=== PATIENT | male | born 1935 | race Caucasian/White ===

== ENCOUNTER 2018-07-27 14:23 | Inpatient (IN) | payer MEDICARE, OTHER ==
[2018-07-27 14:59] LABS: ADD MAN DIFF? NO
[2018-07-27 15:05] LABS: BASOPHILS % 0.7 % (0.0-2.0); EOSINOPHILS # 0.2 10^3/ul (0.0-0.5); EOSINOPHILS % 3.1 % (0.0-7.0); HEMATOCRIT 36.4 % (42.0-52.0); HEMOGLOBIN 11.8 g/dl (14.0-18.0); LYMPHOCYTES # 1.1 10^3/ul (0.8-2.9); LYMPHOCYTES % 18.9 % (15.0-51.0); MEAN CORPUSCULAR HEMOGLOBIN 30.2 pg (29.0-33.0); MEAN CORPUSCULAR HGB CONC 32.4 g/dl (32.0-37.0); MEAN CORPUSCULAR VOLUME 93.1 fl (82.0-101.0); MEAN PLATELET VOLUME 9.4 fl (7.4-10.4); MONOCYTE # 0.6 10^3/ul (0.3-0.9); MONOCYTES % 10.3 % (0.0-11.0); NEUTROPHIL # 3.8 10^3/ul (1.6-7.5); NEUTROPHILS % 66.8 % (39.0-77.0); PLATELET COUNT 205 10^3/UL (140-415); RED BLOOD COUNT 3.91 10^6/ul (4.70-6.10); RED CELL DISTRIBUTION WIDTH 12.6 % (11.5-14.5)
[2018-07-27 15:05] LABS: WHITE BLOOD COUNT 5.7 10^3/ul (4.8-10.8)
[2018-07-27] MEDS: SOD CHLORIDE 0.9% 1,000 ML IV ×2 (15:15→20:28)
[2018-07-27 15:23] LABS: ANION GAP 12 (5-13); BLOOD UREA NITROGEN 28 mg/dl (7-20); CALCIUM 9.1 mg/dl (8.4-10.2); CARBON DIOXIDE 19 mmol/L (21-31); CHLORIDE 110 mmol/L (97-110); GLUCOSE 113 mg/dl (70-220); POTASSIUM 4.2 mmol/L (3.5-5.1); SODIUM 141 mmol/L (135-144)
[2018-07-27 15:34] LABS: TROPONIN-I < 0.012 ng/ml (0.000-0.120)
[2018-07-27] MEDS ORDERED: ONDANSETRON 4 MG INJ IV ×2 (18:00→18:30)
[2018-07-27] MEDS ORDERED: ACETAMINOPHEN 325 MG TAB PO ×2 (18:00→18:30)
[2018-07-27] MEDS ORDERED: NACL 0.9% 3 ML SYG IV (18:30)
[2018-07-27] MEDS ORDERED: BISACODYL (EC) 5 MG TAB PO (18:30)
[2018-07-27] MEDS ORDERED: HYDROCODONE/APAP (5/325) TAB PO (18:30)
[2018-07-27] MEDS ORDERED: hydrALAzine 20 MG INJ IV (18:30)
[2018-07-27] MEDS ORDERED: GLUCOSE GEL 15 GRAM TUBE BUCCAL (19:00)
[2018-07-27] MEDS ORDERED: GLUCAGON 1 MG INJ IM (19:00)
[2018-07-27] MEDS ORDERED: DEXTROSE 50% 50 ML SYRINGE IV ×2 (19:00)
[2018-07-27] MEDS ORDERED: GLUCOSE GEL 15 GRAM TUBE PO ×2 (19:00)
[2018-07-27] MEDS: CEFTRIAXONE 1 GM/50 ML (PMX) 50 ML IVPB (19:54)
[2018-07-27] MEDS: INSULIN GLARGINE [LANTus] (100 UNITS/ML) SYG SC (20:00)
[2018-07-27] MEDS: INSULIN ASPART [NOVOLOG] 3 ML PEN SC (20:30)
[2018-07-27] MEDS: ATORVASTATIN 40 MG TAB PO (20:35)
[2018-07-28] MEDS: ACCU-CHEK XX (01:59)
[2018-07-28 05:57] LABS: ADD MAN DIFF? NO
[2018-07-28 06:06] LABS: BASOPHILS % 0.7 % (0.0-2.0); EOSINOPHILS # 0.2 10^3/ul (0.0-0.5); EOSINOPHILS % 2.7 % (0.0-7.0); HEMATOCRIT 34.7 % (42.0-52.0); HEMOGLOBIN 11.3 g/dl (14.0-18.0); LYMPHOCYTES # 1.3 10^3/ul (0.8-2.9); LYMPHOCYTES % 22.1 % (15.0-51.0); MEAN CORPUSCULAR HEMOGLOBIN 30.1 pg (29.0-33.0); MEAN CORPUSCULAR HGB CONC 32.6 g/dl (32.0-37.0); MEAN CORPUSCULAR VOLUME 92.5 fl (82.0-101.0); MEAN PLATELET VOLUME 10.2 fl (7.4-10.4); MONOCYTE # 0.8 10^3/ul (0.3-0.9); MONOCYTES % 12.8 % (0.0-11.0); NEUTROPHIL # 3.7 10^3/ul (1.6-7.5); NEUTROPHILS % 61.5 % (39.0-77.0); PLATELET COUNT 206 10^3/UL (140-415); RED BLOOD COUNT 3.75 10^6/ul (4.70-6.10); RED CELL DISTRIBUTION WIDTH 12.6 % (11.5-14.5)
[2018-07-28 06:11] LABS: HEMOGLOBIN A1C 6.4 % (0-5.9)
[2018-07-28 06:29] LABS: ALANINE AMINOTRANSFERASE 30 IU/L (13-69); ALBUMIN 3.6 g/dl (3.3-4.9); ALBUMIN/GLOBULIN RATIO 1.44; ALKALINE PHOSPHATASE 97 IU/L (42-121); ANION GAP 13 (5-13); ASPARTATE AMINO TRANSFERASE 25 IU/L (15-46); BILIRUBIN,INDIRECT 0.2 mg/dl (0-1.1); BILIRUBIN,TOTAL 0.2 mg/dl (0.2-1.3); BLOOD UREA NITROGEN 26 mg/dl (7-20); CARBON DIOXIDE 21 mmol/L (21-31); CHLORIDE 111 mmol/L (97-110); CHOLESTEROL 111 mg/dl (100-200); GLUCOSE 98 mg/dl (70-220); HDL CHOLESTEROL 22 mg/dl (31-75); LDL CHOLESTEROL,CALCULATED 56 mg/dl; MAGNESIUM 1.9 mg/dl (1.7-2.5); POTASSIUM 3.6 mmol/L (3.5-5.1); SODIUM 145 mmol/L (135-144); TOTAL PROTEIN 6.1 g/dl (6.1-8.1); TRIGLYCERIDES 167 mg/dl (0-149)
[2018-07-28 06:55] LABS: THYROID STIMULATING HORMONE 0.191 MIU/L (0.465-4.680)
[2018-07-28] MEDS: INSULIN ASPART [NOVOLOG] 3 ML PEN SC ×4 (08:00→20:14)
[2018-07-28] MEDS: ISOSORBIDE MONONITRATE(SR)60 MG TAB PO (08:33)
[2018-07-28] MEDS: ASPIRIN 81 MG TAB PO (08:33)
[2018-07-28] MEDS: ATENOLOL 50 MG TAB PO (08:33)
[2018-07-28] MEDS: CEFTRIAXONE 1 GM/50 ML (PMX) 50 ML IVPB (17:32)
[2018-07-28] MEDS: ATORVASTATIN 40 MG TAB PO (20:15)
[2018-07-28] MEDS: INSULIN GLARGINE [LANTus] (100 UNITS/ML) SYG SC (20:17)
[2018-07-29] MEDS: ACCU-CHEK XX (01:53)
[2018-07-29 06:00] LABS: ADD MAN DIFF? NO
[2018-07-29 06:07] LABS: BASOPHILS % 0.5 % (0.0-2.0); EOSINOPHILS # 0.2 10^3/ul (0.0-0.5); EOSINOPHILS % 2.7 % (0.0-7.0); HEMATOCRIT 34.2 % (42.0-52.0); HEMOGLOBIN 10.9 g/dl (14.0-18.0); LYMPHOCYTES # 1.4 10^3/ul (0.8-2.9); LYMPHOCYTES % 19.2 % (15.0-51.0); MEAN CORPUSCULAR HEMOGLOBIN 29.7 pg (29.0-33.0); MEAN CORPUSCULAR HGB CONC 31.9 g/dl (32.0-37.0); MEAN CORPUSCULAR VOLUME 93.2 fl (82.0-101.0); MONOCYTE # 0.9 10^3/ul (0.3-0.9); MONOCYTES % 12.5 % (0.0-11.0); NEUTROPHIL # 4.7 10^3/ul (1.6-7.5); NEUTROPHILS % 64.8 % (39.0-77.0); PLATELET COUNT 194 10^3/UL (140-415); RED BLOOD COUNT 3.67 10^6/ul (4.70-6.10); RED CELL DISTRIBUTION WIDTH 12.7 % (11.5-14.5)
[2018-07-29 06:07] LABS: WHITE BLOOD COUNT 7.3 10^3/ul (4.8-10.8)
[2018-07-29 07:10] LABS: ANION GAP 13 (5-13); BLOOD UREA NITROGEN 24 mg/dl (7-20); CALCIUM 8.9 mg/dl (8.4-10.2); CARBON DIOXIDE 25 mmol/L (21-31); CHLORIDE 107 mmol/L (97-110); CREATININE 1.51 mg/dl (0.61-1.24); GLUCOSE 93 mg/dl (70-220); MAGNESIUM 1.9 mg/dl (1.7-2.5); PHOSPHORUS 3.7 mg/dl (2.5-4.9); POTASSIUM 4.1 mmol/L (3.5-5.1); SODIUM 145 mmol/L (135-144)
[2018-07-29] MEDS: INSULIN ASPART [NOVOLOG] 3 ML PEN SC ×4 (07:56→21:00)
[2018-07-29] MEDS: ASPIRIN 81 MG TAB PO (08:54)
[2018-07-29] MEDS: ISOSORBIDE MONONITRATE(SR)60 MG TAB PO (08:55)
[2018-07-29] MEDS: ATENOLOL 50 MG TAB PO (08:55)
[2018-07-29] MEDS: CEFTRIAXONE 1 GM/50 ML (PMX) 50 ML IVPB (17:55)
[2018-07-29] MEDS: ATORVASTATIN 40 MG TAB PO (20:30)
[2018-07-29] MEDS: INSULIN GLARGINE [LANTus] (100 UNITS/ML) SYG SC (21:01)
[2018-07-30] MEDS: ACCU-CHEK XX ×2 (02:00→22:19)
[2018-07-30] MEDS: INSULIN ASPART [NOVOLOG] 3 ML PEN SC ×4 (08:00→20:37)
[2018-07-30] MEDS: ISOSORBIDE MONONITRATE(SR)60 MG TAB PO (08:20)
[2018-07-30] MEDS: ATENOLOL 50 MG TAB PO (08:20)
[2018-07-30] MEDS: ASPIRIN 81 MG TAB PO (08:20)
[2018-07-30] MEDS: CEFTRIAXONE 1 GM/50 ML (PMX) 50 ML IVPB (17:46)
[2018-07-30] MEDS: ATORVASTATIN 40 MG TAB PO (20:37)
[2018-07-30] MEDS: INSULIN GLARGINE [LANTus] (100 UNITS/ML) SYG SC (20:39)
[2018-07-31] MEDS: INSULIN ASPART [NOVOLOG] 3 ML PEN SC (08:00)
[2018-07-31] MEDS: ISOSORBIDE MONONITRATE(SR)60 MG TAB PO (08:51)
[2018-07-31] MEDS: ATENOLOL 50 MG TAB PO (08:52)
[2018-07-31] MEDS: ASPIRIN 81 MG TAB PO (08:52)
[2018-07-31] MEDS: ACCU-CHEK XX ×3 (11:30→20:28)
[2018-07-31] MEDS: metFORMIN 500 MG TAB PO (17:51)
[2018-07-31] MEDS: ATORVASTATIN 40 MG TAB PO (20:26)
[2018-08-01 07:18] LABS: ANION GAP 10 (5-13); BLOOD UREA NITROGEN 23 mg/dl (7-20); CALCIUM 8.9 mg/dl (8.4-10.2); CARBON DIOXIDE 28 mmol/L (21-31); CHLORIDE 105 mmol/L (97-110); CREATININE 1.62 mg/dl (0.61-1.24); GLUCOSE 95 mg/dl (70-220); MAGNESIUM 1.8 mg/dl (1.7-2.5); POTASSIUM 4.3 mmol/L (3.5-5.1); SODIUM 143 mmol/L (135-144)
[2018-08-01] MEDS: ACCU-CHEK XX ×2 (08:04→12:26)
[2018-08-01] MEDS: metFORMIN 500 MG TAB PO (08:04)
[2018-08-01] MEDS: ATENOLOL 50 MG TAB PO (08:43)
[2018-08-01] MEDS: ASPIRIN 81 MG TAB PO (08:43)
[2018-08-01] MEDS: ISOSORBIDE MONONITRATE(SR)60 MG TAB PO (08:43)
[2018-08-01 09:12] LABS: ADD UMIC NO; UR ASCORBIC ACID NEGATIVE (NEGATIVE); UR BILIRUBIN (Dip) NEGATIVE (NEGATIVE); UR BLOOD (Dip) NEGATIVE (NEGATIVE); UR CLARITY CLEAR (CLEAR); UR COLOR YELLOW (YELLOW); UR GLUCOSE (Dip) NEGATIVE (NEGATIVE); UR KETONES (Dip) NEGATIVE (NEGATIVE); UR LEUKOCYTE ESTERASE (Dip) NEGATIVE Leu/ul (NEGATIVE); UR NITRITE (Dip) NEGATIVE (NEGATIVE); UR SPECIFIC GRAVITY (Dip) 1.016 (1.003-1.030); UR TOTAL PROTEIN (Dip) NEGATIVE (NEGATIVE); UR UROBILINOGEN (Dip) NEGATIVE (NEGATIVE)
[2018-08-01 09:30] LABS: CREATININE,URINE RANDOM 121.06 mg/dl (20-370)
[2018-08-01 09:30] LABS: SODIUM,URINE RANDOM 128 mmol/L (30-90)
[2018-08-02 12:56] LABS: CREATININE, RANDOM URINE 125 mg/dL (20-320); MICROALBUMIN/CREATININE RATIO 8 (<30)
== END 2018-08-01 17:11 | disposition home health service (06) | DRG 683 ==
LOC: E/R 14:23 → PP2 17:31
DX: N17.9 Acute kidney failure, unspecified (principal); E87.0 Hyperosmolality and hypernatremia; I12.9 Hypertensive chronic kidney disease with stage 1 through stage 4 chronic kidney disease, or unspecified chronic kidney disease; E11.22 Type 2 diabetes mellitus with diabetic chronic kidney disease; E78.00 Pure hypercholesterolemia, unspecified; M17.0 Bilateral primary osteoarthritis of knee; N18.3 Chronic kidney disease, stage 3 (moderate); I25.10 Atherosclerotic heart disease of native coronary artery without angina pectoris; H66.90 Otitis media, unspecified, unspecified ear; R53.81 Other malaise; F03.90 Unspecified dementia, unspecified severity, without behavioral disturbance, psychotic disturbance, mood disturbance, and anxiety; Z79.82 Long term (current) use of aspirin; Z79.84 Long term (current) use of oral hypoglycemic drugs
CPT/HCPCS: 36415; 70450; 73562-50; 76775; 80048; 80053; 80061; 81003; 82043; 82962; 83036; 83735; 84100; 84155; 84300; 84443; 84484; 85025; 87040; 93005; 97116; 97161; 97167; 97530; 97535; 99285-25

== ENCOUNTER 2019-01-30 07:38 | Inpatient (IN) | payer MEDICARE, OTHER ==
[2019-01-30] MEDS: morphine 4 MG/ML VIAL IV (08:02)
[2019-01-30] MEDS: ONDANSETRON 4 MG INJ IV (08:02)
[2019-01-30 08:09] LABS: ADD MAN DIFF? NO
[2019-01-30 08:13] LABS: BASOPHIL # 0.1 10^3/ul (0.0-0.1); BASOPHILS % 0.8 % (0.0-2.0); EOSINOPHILS # 0.3 10^3/ul (0.0-0.5); EOSINOPHILS % 4.4 % (0.0-7.0); HEMATOCRIT 37.5 % (42.0-52.0); HEMOGLOBIN 11.9 g/dl (14.0-18.0); LYMPHOCYTES # 1.2 10^3/ul (0.8-2.9); LYMPHOCYTES % 20.4 % (15.0-51.0); MEAN CORPUSCULAR HEMOGLOBIN 29.9 pg (29.0-33.0); MEAN CORPUSCULAR HGB CONC 31.7 g/dl (32.0-37.0); MEAN CORPUSCULAR VOLUME 94.2 fl (82.0-101.0); MEAN PLATELET VOLUME 10.1 fl (7.4-10.4); MONOCYTE # 0.7 10^3/ul (0.3-0.9); MONOCYTES % 11.6 % (0.0-11.0); NEUTROPHIL # 3.7 10^3/ul (1.6-7.5); NEUTROPHILS % 62.3 % (39.0-77.0); PLATELET COUNT 205 10^3/UL (140-415); RED BLOOD COUNT 3.98 10^6/ul (4.70-6.10); RED CELL DISTRIBUTION WIDTH 12.5 % (11.5-14.5)
[2019-01-30 08:13] LABS: WHITE BLOOD COUNT 5.9 10^3/ul (4.8-10.8)
[2019-01-30] MEDS: LIDOCAINE 2%/EPI MPF (SDV) 20 ML VIAL INJ (08:25)
[2019-01-30 08:27] LABS: ANION GAP 11 (5-13)
[2019-01-30] MEDS: DIPHTH/TET/ACEL PERTUSS (ADULT) 0.5 ML VIAL IM* (08:27)
[2019-01-30 08:34] LABS: INR 0.98; PARTIAL THROMBOPLASTIN TIME 28.1 Sec (23.0-35.0); PROTIME 13.1 Sec (11.9-14.9)
[2019-01-30 08:38] LABS: BLOOD UREA NITROGEN 21 mg/dl (7-20); CALCIUM 9.2 mg/dl (8.4-10.2); CARBON DIOXIDE 26 mmol/L (21-31); CHLORIDE 106 mmol/L (97-110); CREATININE 1.75 mg/dl (0.61-1.24); GLUCOSE 154 mg/dl (70-220); POTASSIUM 4.9 mmol/L (3.5-5.1); SODIUM 143 mmol/L (135-144)
[2019-01-30 08:39] LABS: TROPONIN-I < 0.012 ng/ml (0.000-0.120)
[2019-01-30] MEDS: HYDROmorphONE 2 MG/ML SYG IV (09:19)
[2019-01-30] MEDS ORDERED: ACETAMINOPHEN 325 MG TAB PO (10:30)
[2019-01-30] MEDS ORDERED: ONDANSETRON 4 MG INJ IV ×2 (10:30→12:00)
[2019-01-30] MEDS ORDERED: NACL 0.9% 3 ML SYG IV (12:00)
[2019-01-30] MEDS: INSULIN ASPART [NOVOLOG] 3 ML PEN SC ×3 (12:00→22:42)
[2019-01-30] MEDS ORDERED: GLUCOSE GEL 15 GRAM TUBE PO ×2 (12:30)
[2019-01-30] MEDS ORDERED: GLUCAGON 1 MG INJ IM (12:30)
[2019-01-30] MEDS ORDERED: DEXTROSE 50% 50 ML SYRINGE IV ×2 (12:30)
[2019-01-30] MEDS ORDERED: GLUCOSE GEL 15 GRAM TUBE BUCCAL (12:30)
[2019-01-30 13:05] LABS: CREATINE KINASE 187 IU/L (23-200)
[2019-01-30 13:18] LABS: CK INDEX 0.9; CK-MB 1.71 ng/ml (0.0-2.4); TROPONIN-I < 0.012 ng/ml (0.000-0.120)
[2019-01-30] MEDS ORDERED: hydrALAzine 20 MG INJ IV (15:00)
[2019-01-30] MEDS: SOD CHLORIDE 0.9% 1,000 ML IV ×2 (15:05→16:11)
[2019-01-30] MEDS: morphine 2 MG INJ IV ×2 (15:06→18:35)
[2019-01-30] MEDS: ATENOLOL 100 MG TAB PO (17:28)
[2019-01-30 18:59] LABS: CREATINE KINASE 244 IU/L (23-200)
[2019-01-30 19:13] LABS: CK INDEX 0.9; CK-MB 2.09 ng/ml (0.0-2.4); TROPONIN-I < 0.012 ng/ml (0.000-0.120)
[2019-01-30] MEDS: FAMOTIDINE 20 MG TAB PO (21:43)
[2019-01-30] MEDS: ATORVASTATIN 40 MG TAB PO (21:44)
[2019-01-30] MEDS: BRIMONIDINE 0.15% 5 ML OPH BOTH EYES (21:46)
[2019-01-30] MEDS: INSULIN GLARGINE [LANTus] (100 UNITS/ML) SYG SC (22:41)
[2019-01-31 00:26] LABS: CREATINE KINASE 221 IU/L (23-200)
[2019-01-31 00:38] LABS: CK INDEX 0.7; CK-MB 1.62 ng/ml (0.0-2.4); TROPONIN-I 0.013 ng/ml (0.000-0.120)
[2019-01-31] MEDS: ACCU-CHEK XX (02:00)
[2019-01-31] MEDS: SOD CHLORIDE 0.9% 1,000 ML IV ×2 (02:46→15:02)
[2019-01-31 05:18] LABS: ADD MAN DIFF? NO
[2019-01-31 05:25] LABS: WHITE BLOOD COUNT 7.6 10^3/ul (4.8-10.8)
[2019-01-31 05:25] LABS: BASOPHILS % 0.5 % (0.0-2.0); EOSINOPHILS # 0.1 10^3/ul (0.0-0.5); EOSINOPHILS % 1.6 % (0.0-7.0); HEMATOCRIT 31.9 % (42.0-52.0); HEMOGLOBIN 10.3 g/dl (14.0-18.0); LYMPHOCYTES # 1.3 10^3/ul (0.8-2.9); LYMPHOCYTES % 16.6 % (15.0-51.0); MEAN CORPUSCULAR HEMOGLOBIN 29.9 pg (29.0-33.0); MEAN CORPUSCULAR HGB CONC 32.3 g/dl (32.0-37.0); MEAN CORPUSCULAR VOLUME 92.7 fl (82.0-101.0); MEAN PLATELET VOLUME 10.2 fl (7.4-10.4); MONOCYTE # 1.4 10^3/ul (0.3-0.9); MONOCYTES % 18.5 % (0.0-11.0); NEUTROPHIL # 4.7 10^3/ul (1.6-7.5); NEUTROPHILS % 62.5 % (39.0-77.0); PLATELET COUNT 173 10^3/UL (140-415); RED BLOOD COUNT 3.44 10^6/ul (4.70-6.10); RED CELL DISTRIBUTION WIDTH 12.8 % (11.5-14.5)
[2019-01-31 05:40] LABS: HEMOGLOBIN A1C 5.8 % (0-5.9)
[2019-01-31 05:41] LABS: ALANINE AMINOTRANSFERASE 29 IU/L (13-69); ALBUMIN 3.4 g/dl (3.3-4.9); ALBUMIN/GLOBULIN RATIO 1.36; ALKALINE PHOSPHATASE 75 IU/L (42-121); ANION GAP 9 (5-13); ASPARTATE AMINO TRANSFERASE 22 IU/L (15-46); BILIRUBIN,TOTAL 0.6 mg/dl (0.2-1.3); BLOOD UREA NITROGEN 23 mg/dl (7-20); CALCIUM 8.6 mg/dl (8.4-10.2); CARBON DIOXIDE 27 mmol/L (21-31); CHLORIDE 106 mmol/L (97-110); CHOL/HDL RATIO 4.1 RATIO; CHOLESTEROL 103 mg/dl (100-200); CREATININE 1.74 mg/dl (0.61-1.24); GLUCOSE 143 mg/dl (70-220); HDL CHOLESTEROL 25 mg/dl (31-75); LDL CHOLESTEROL,CALCULATED 58 mg/dl; MAGNESIUM 1.8 mg/dl (1.7-2.5); SODIUM 142 mmol/L (135-144); TOTAL PROTEIN 5.9 g/dl (6.1-8.1); TRIGLYCERIDES 101 mg/dl (0-149)
[2019-01-31 05:44] LABS: BILIRUBIN,INDIRECT 0.6 mg/dl (0-1.1)
[2019-01-31] MEDS: INSULIN ASPART [NOVOLOG] 3 ML PEN SC ×4 (07:50→21:00)
[2019-01-31] MEDS: BRIMONIDINE 0.15% 5 ML OPH BOTH EYES ×2 (08:39→21:00)
[2019-01-31] MEDS: morphine 2 MG INJ IV (08:44)
[2019-01-31] MEDS: ATENOLOL 100 MG TAB PO (09:00)
[2019-01-31] MEDS ORDERED: morphine 2 MG INJ IV (14:30)
[2019-01-31 15:15] LABS: ADD UMIC NO; UR ASCORBIC ACID NEGATIVE (NEGATIVE); UR BILIRUBIN (Dip) NEGATIVE (NEGATIVE); UR BLOOD (Dip) NEGATIVE (NEGATIVE); UR CLARITY CLEAR (CLEAR); UR COLOR YELLOW (YELLOW); UR GLUCOSE (Dip) NEGATIVE (NEGATIVE); UR KETONES (Dip) NEGATIVE (NEGATIVE); UR LEUKOCYTE ESTERASE (Dip) NEGATIVE Leu/ul (NEGATIVE); UR NITRITE (Dip) NEGATIVE (NEGATIVE); UR SPECIFIC GRAVITY (Dip) 1.014 (1.003-1.030); UR TOTAL PROTEIN (Dip) NEGATIVE (NEGATIVE); UR UROBILINOGEN (Dip) NEGATIVE (NEGATIVE)
[2019-01-31 15:43] LABS: CREATININE,URINE RANDOM 89.18 mg/dl (20-370)
[2019-01-31 15:43] LABS: SODIUM,URINE RANDOM 142 mmol/L (30-90)
[2019-01-31] MEDS ORDERED: morphine SULFATE/PF (10 MG/10 ML) INJ (16:01)
[2019-01-31] MEDS ORDERED: MIDAZOLAM 1 MG/ML 2 ML INJ (16:01)
[2019-01-31] MEDS ORDERED: FENTAnyl 50 MCG/ML VIAL (16:01)
[2019-01-31] MEDS ORDERED: PHENYLephrine 10 MG INJ (16:12)
[2019-01-31] MEDS: POLYMYXIN/BACITRACIN 1L IRRIG (17:21)
[2019-01-31] MEDS ORDERED: ROCURONIUM 50 MG INJ (19:49)
[2019-01-31] MEDS ORDERED: ONDANSETRON 4 MG INJ (19:49)
[2019-01-31] MEDS ORDERED: ETOMIDATE 20 MG INJ (19:49)
[2019-01-31] MEDS ORDERED: CEFAZOLIN 1 GM INJ (19:49)
[2019-01-31] MEDS ORDERED: LIDOCAINE 2% (SDV) 5 ML INJ (19:49)
[2019-01-31] MEDS ORDERED: EPHEDrine 25 MG/5 ML SYG IV (21:00)
[2019-01-31] MEDS ORDERED: HYDROmorphONE 1 MG/5 ML IV SYRINGE IV ×2 (21:00)
[2019-01-31] MEDS ORDERED: NACL 0.9% 3 ML SYG IV (21:00)
[2019-01-31] MEDS ORDERED: METOCLOPRAMIDE 10 MG INJ IV (21:00)
[2019-01-31] MEDS ORDERED: FENTAnyl 50 MCG/ML VIAL IV (21:00)
[2019-01-31] MEDS ORDERED: DIPHENHYDRAMINE 50 MG INJ IV ×2 (21:00)
[2019-01-31] MEDS ORDERED: NA PHOSPHATE/BIPHOS 133 ML ENEMA PR (21:00)
[2019-01-31] MEDS ORDERED: MEPERIDINE 25 MG INJ IV (21:00)
[2019-01-31] MEDS ORDERED: ALBUTEROL 0.083% (NEB) 2.5 MG/3 ML AMP HHN (21:00)
[2019-01-31] MEDS ORDERED: oxyCODONE 15 MG TAB PO (21:00)
[2019-01-31] MEDS ORDERED: BISACODYL 10 MG SUPP PR (21:00)
[2019-01-31] MEDS ORDERED: ONDANSETRON 4 MG INJ IV (21:00)
[2019-01-31] MEDS ORDERED: ALBUMIN HUMAN 5% 250 ML IV (21:00)
[2019-01-31] MEDS ORDERED: BETHANECHOL 25 MG TAB PO (21:00)
[2019-01-31] MEDS: LACTATED RINGER'S 1,000 ML IV (22:40)
[2019-01-31] MEDS: CEFAZOLIN 2 GM/50 ML (PMX) 50 ML IVPB (22:44)
[2019-01-31] MEDS: DOCUSATE SODIUM 100 MG CAP PO (22:54)
[2019-01-31] MEDS: ACETAMINOPHEN 500 MG TAB PO (22:54)
[2019-01-31] MEDS: GABAPENTIN 300 MG CAP PO (22:55)
[2019-01-31] MEDS: FAMOTIDINE 20 MG TAB PO (22:55)
[2019-01-31] MEDS: ATORVASTATIN 40 MG TAB PO (22:55)
[2019-01-31] MEDS: INSULIN GLARGINE [LANTus] (100 UNITS/ML) SYG SC (22:57)
[2019-02-01] MEDS ORDERED: NALOXONE (0.4 MG/ML) INJ IV
[2019-02-01] MEDS ORDERED: HYDROmorphONE 1 MG/ML SYG IV
[2019-02-01] MEDS ORDERED: oxyCODONE 15 MG TAB PO
[2019-02-01] MEDS ORDERED: oxyCODONE 5 MG TAB PO
[2019-02-01] MEDS: oxyCODONE 5 MG TAB PO ×3 (00:10→17:18)
[2019-02-01] MEDS: ACCU-CHEK XX (02:00)
[2019-02-01 05:21] LABS: ADD MAN DIFF? NO
[2019-02-01 05:31] LABS: WHITE BLOOD COUNT 8.9 10^3/ul (4.8-10.8)
[2019-02-01 05:31] LABS: BASOPHILS % 0.3 % (0.0-2.0); EOSINOPHILS % 0.5 % (0.0-7.0); HEMATOCRIT 28.8 % (42.0-52.0); HEMOGLOBIN 9.4 g/dl (14.0-18.0); LYMPHOCYTES # 0.7 10^3/ul (0.8-2.9); LYMPHOCYTES % 8.2 % (15.0-51.0); MEAN CORPUSCULAR HGB CONC 32.6 g/dl (32.0-37.0); MEAN PLATELET VOLUME 10.7 fl (7.4-10.4); MONOCYTE # 1.4 10^3/ul (0.3-0.9); MONOCYTES % 15.5 % (0.0-11.0); NEUTROPHIL # 6.7 10^3/ul (1.6-7.5); PLATELET COUNT 163 10^3/UL (140-415); RED BLOOD COUNT 3.13 10^6/ul (4.70-6.10); RED CELL DISTRIBUTION WIDTH 12.9 % (11.5-14.5)
[2019-02-01 06:02] LABS: ANION GAP 9 (5-13); BLOOD UREA NITROGEN 21 mg/dl (7-20); CARBON DIOXIDE 24 mmol/L (21-31); CHLORIDE 107 mmol/L (97-110); CREATININE 1.73 mg/dl (0.61-1.24); GLUCOSE 118 mg/dl (70-220); MAGNESIUM 1.7 mg/dl (1.7-2.5); PHOSPHORUS 3.4 mg/dl (2.5-4.9); POTASSIUM 4.7 mmol/L (3.5-5.1); SODIUM 140 mmol/L (135-144)
[2019-02-01] MEDS: ACETAMINOPHEN 500 MG TAB PO ×3 (06:27→21:35)
[2019-02-01] MEDS: CEFAZOLIN 2 GM/50 ML (PMX) 50 ML IVPB ×2 (06:28→14:25)
[2019-02-01] MEDS: INSULIN ASPART [NOVOLOG] 3 ML PEN SC ×4 (07:50→21:00)
[2019-02-01] MEDS: DOCUSATE SODIUM 100 MG CAP PO ×2 (08:28→21:36)
[2019-02-01] MEDS: BRIMONIDINE 0.15% 5 ML OPH BOTH EYES ×2 (08:28→21:36)
[2019-02-01] MEDS: ATENOLOL 100 MG TAB PO (08:28)
[2019-02-01] MEDS: ENOXAPARIN 40 MG/0.4 ML SYG SC (08:29)
[2019-02-01 09:43] LABS: ADD UMIC YES; IRON < 10 ug/dl (35-150); UR ASCORBIC ACID NEGATIVE (NEGATIVE); UR BILIRUBIN (Dip) NEGATIVE (NEGATIVE); UR BLOOD (Dip) 1+ mg/dL (NEGATIVE); UR CLARITY CLEAR (CLEAR); UR COLOR YELLOW (YELLOW); UR GLUCOSE (Dip) NEGATIVE (NEGATIVE); UR KETONES (Dip) NEGATIVE (NEGATIVE); UR LEUKOCYTE ESTERASE (Dip) NEGATIVE Leu/ul (NEGATIVE); UR NITRITE (Dip) NEGATIVE (NEGATIVE); UR RBC 5 /HPF (0-5); UR SPECIFIC GRAVITY (Dip) 1.018 (1.003-1.030); UR TOTAL PROTEIN (Dip) NEGATIVE (NEGATIVE); UR UROBILINOGEN (Dip) NEGATIVE (NEGATIVE); UR WBC 3 /HPF (0-5)
[2019-02-01 09:51] LABS: TOTAL IRON BINDING CAPACITY 232 ug/dl (241-421)
[2019-02-01 15:06] LABS: CREATININE, RANDOM URINE 93 mg/dL (20-320); MICROALBUMIN 1.3 mg/dL; MICROALBUMIN/CREATININE RATIO 14 (<30)
[2019-02-01] MEDS ORDERED: ONDANSETRON 4 MG INJ IV (21:00)
[2019-02-01] MEDS: ATORVASTATIN 40 MG TAB PO (21:35)
[2019-02-01] MEDS: GABAPENTIN 300 MG CAP PO (21:36)
[2019-02-01] MEDS: FAMOTIDINE 20 MG TAB PO (21:36)
[2019-02-01] MEDS: INSULIN GLARGINE [LANTus] (100 UNITS/ML) SYG SC (21:43)
[2019-02-02] MEDS: ACCU-CHEK XX (02:00)
[2019-02-02 04:50] LABS: ADD MAN DIFF? NO
[2019-02-02 04:58] LABS: BASOPHILS % 0.5 % (0.0-2.0); EOSINOPHILS # 0.1 10^3/ul (0.0-0.5); EOSINOPHILS % 2.4 % (0.0-7.0); HEMATOCRIT 26.7 % (42.0-52.0); HEMOGLOBIN 8.7 g/dl (14.0-18.0); LYMPHOCYTES # 0.6 10^3/ul (0.8-2.9); LYMPHOCYTES % 11.1 % (15.0-51.0); MEAN CORPUSCULAR HEMOGLOBIN 30.3 pg (29.0-33.0); MEAN CORPUSCULAR HGB CONC 32.6 g/dl (32.0-37.0); MEAN PLATELET VOLUME 10.4 fl (7.4-10.4); MONOCYTES % 17.1 % (0.0-11.0); NEUTROPHIL # 3.9 10^3/ul (1.6-7.5); NEUTROPHILS % 68.6 % (39.0-77.0); PLATELET COUNT 148 10^3/UL (140-415); RED BLOOD COUNT 2.87 10^6/ul (4.70-6.10); RED CELL DISTRIBUTION WIDTH 12.8 % (11.5-14.5)
[2019-02-02 04:58] LABS: WHITE BLOOD COUNT 5.7 10^3/ul (4.8-10.8)
[2019-02-02 05:39] LABS: ANION GAP 7 (5-13); BLOOD UREA NITROGEN 24 mg/dl (7-20); CALCIUM 7.9 mg/dl (8.4-10.2); CARBON DIOXIDE 26 mmol/L (21-31); CHLORIDE 104 mmol/L (97-110); CREATININE 1.87 mg/dl (0.61-1.24); GLUCOSE 111 mg/dl (70-220); POTASSIUM 4.6 mmol/L (3.5-5.1); SODIUM 137 mmol/L (135-144)
[2019-02-02] MEDS: ACETAMINOPHEN 500 MG TAB PO ×3 (06:37→22:13)
[2019-02-02] MEDS: PANTOPRAZOLE (EC) 40 MG TAB PO (06:37)
[2019-02-02] MEDS: INSULIN ASPART [NOVOLOG] 3 ML PEN SC ×4 (07:50→21:00)
[2019-02-02] MEDS: ATENOLOL 100 MG TAB PO (09:00)
[2019-02-02] MEDS: DOCUSATE SODIUM 100 MG CAP PO ×2 (09:56→20:25)
[2019-02-02] MEDS: BRIMONIDINE 0.15% 5 ML OPH BOTH EYES ×2 (09:58→20:25)
[2019-02-02] MEDS: ENOXAPARIN 40 MG/0.4 ML SYG SC (10:00)
[2019-02-02] MEDS: SENNA/DOCUSATE NA (8.6MG/50MG) TAB PO (11:15)
[2019-02-02] MEDS: GABAPENTIN 300 MG CAP PO (20:25)
[2019-02-02] MEDS: ATORVASTATIN 40 MG TAB PO (20:25)
[2019-02-02] MEDS: MAGNESIUM HYDROXIDE 30ML CUP PO (20:25)
[2019-02-02] MEDS: FAMOTIDINE 20 MG TAB PO (20:25)
[2019-02-02] MEDS: INSULIN GLARGINE [LANTus] (100 UNITS/ML) SYG SC (20:41)
[2019-02-02] MEDS: ACETAMINOPHEN 325 MG TAB PO (22:09)
[2019-02-03] MEDS: ACCU-CHEK XX (02:00)
[2019-02-03 04:57] LABS: ADD MAN DIFF? NO
[2019-02-03 05:06] LABS: WHITE BLOOD COUNT 6.1 10^3/ul (4.8-10.8)
[2019-02-03 05:06] LABS: BASOPHILS % 0.3 % (0.0-2.0); EOSINOPHILS # 0.3 10^3/ul (0.0-0.5); EOSINOPHILS % 4.1 % (0.0-7.0); HEMATOCRIT 25.9 % (42.0-52.0); HEMOGLOBIN 8.5 g/dl (14.0-18.0); LYMPHOCYTES # 0.9 10^3/ul (0.8-2.9); LYMPHOCYTES % 15.2 % (15.0-51.0); MEAN CORPUSCULAR HEMOGLOBIN 30.1 pg (29.0-33.0); MEAN CORPUSCULAR HGB CONC 32.8 g/dl (32.0-37.0); MEAN CORPUSCULAR VOLUME 91.8 fl (82.0-101.0); MEAN PLATELET VOLUME 10.4 fl (7.4-10.4); NEUTROPHIL # 3.9 10^3/ul (1.6-7.5); NEUTROPHILS % 64.1 % (39.0-77.0); PLATELET COUNT 172 10^3/UL (140-415); RED BLOOD COUNT 2.82 10^6/ul (4.70-6.10); RED CELL DISTRIBUTION WIDTH 12.6 % (11.5-14.5)
[2019-02-03 05:26] LABS: ANION GAP 6 (5-13); BLOOD UREA NITROGEN 23 mg/dl (7-20); CARBON DIOXIDE 26 mmol/L (21-31); CHLORIDE 106 mmol/L (97-110); CREATININE 1.64 mg/dl (0.61-1.24); GLUCOSE 93 mg/dl (70-220); MAGNESIUM 2.4 mg/dl (1.7-2.5); PHOSPHORUS 3.2 mg/dl (2.5-4.9); POTASSIUM 4.1 mmol/L (3.5-5.1); SODIUM 138 mmol/L (135-144)
[2019-02-03] MEDS: PANTOPRAZOLE (EC) 40 MG TAB PO (06:39)
[2019-02-03] MEDS: ACETAMINOPHEN 500 MG TAB PO ×2 (06:39→13:34)
[2019-02-03] MEDS: INSULIN ASPART [NOVOLOG] 3 ML PEN SC ×2 (08:58→12:59)
[2019-02-03] MEDS: DOCUSATE SODIUM 100 MG CAP PO (09:00)
[2019-02-03] MEDS: ASPIRIN (EC) 81 MG TAB PO (09:00)
[2019-02-03] MEDS: ATENOLOL 100 MG TAB PO (09:02)
[2019-02-03] MEDS: ENOXAPARIN 30 MG/0.3 ML SYG SC (09:03)
[2019-02-03] MEDS: BRIMONIDINE 0.15% 5 ML OPH BOTH EYES (09:04)
== END 2019-02-03 13:45 | DRG 493 ==
LOC: E/R 07:38 → MS1 10:05
PROC: 0QSG06Z Reposition Right Tibia with Intramedullary Internal Fixation Device, Open Approach (ICD-10-PCS; principal; 2019-01-31 16:02)
PROC: 0HQ0XZZ Repair Scalp Skin, External Approach (ICD-10-PCS; 2019-01-31 16:02)
DX: S82.391A Other fracture of lower end of right tibia, initial encounter for closed fracture (principal); N17.9 Acute kidney failure, unspecified; J44.9 Chronic obstructive pulmonary disease, unspecified; S82.451A Displaced comminuted fracture of shaft of right fibula, initial encounter for closed fracture; N18.3 Chronic kidney disease, stage 3 (moderate); I25.10 Atherosclerotic heart disease of native coronary artery without angina pectoris; S01.01XA Laceration without foreign body of scalp, initial encounter; E78.5 Hyperlipidemia, unspecified; D64.9 Anemia, unspecified; I12.9 Hypertensive chronic kidney disease with stage 1 through stage 4 chronic kidney disease, or unspecified chronic kidney disease; E11.22 Type 2 diabetes mellitus with diabetic chronic kidney disease; Z79.84 Long term (current) use of oral hypoglycemic drugs; W01.0XXA Fall on same level from slipping, tripping and stumbling without subsequent striking against object, initial encounter
CPT/HCPCS: 36415; 70450; 71045; 72125; 73510; 73562; 73590; 73610-RT; 80048; 80053; 80061; 81001; 81003; 82043; 82550; 82553; 82962; 83036; 83540; 83735; 84100; 84155; 84300; 84484; 85025; 85610; 85730; 87086; 90471; 90715; 93005; 93306; 96374; 96375; 97110; 97116; 97163; 97167; 97530; 99285-25

== ENCOUNTER 2019-02-03 13:55 | Inpatient (IN) | payer MEDICARE, OTHER ==
[2019-02-03] MEDS ORDERED: ACETAMINOPHEN 325 MG TAB PO (14:30)
[2019-02-03] MEDS ORDERED: BISACODYL 10 MG SUPP PR (14:30)
[2019-02-03] MEDS ORDERED: SENNA/DOCUSATE NA (8.6MG/50MG) TAB PO (14:30)
[2019-02-03] MEDS ORDERED: PENDING SANTYL ORDER FOR WOUND CARE XX (14:30)
[2019-02-03] MEDS ORDERED: MAGNESIUM HYDROXIDE 30ML CUP PO ×2 (14:30→15:00)
[2019-02-03] MEDS ORDERED: oxyCODONE 5 MG TAB PO (15:00)
[2019-02-03] MEDS ORDERED: GLUCAGON 1 MG INJ IM (15:30)
[2019-02-03] MEDS ORDERED: GLUCOSE GEL 15 GRAM TUBE PO ×2 (15:30)
[2019-02-03] MEDS ORDERED: GLUCOSE GEL 15 GRAM TUBE BUCCAL (15:30)
[2019-02-03] MEDS ORDERED: DEXTROSE 50% 50 ML SYRINGE IV ×2 (15:30)
[2019-02-03] MEDS: ACCU-CHEK XX ×2 (17:05→21:01)
[2019-02-03] MEDS: INSULIN ASPART [NOVOLOG] 3 ML PEN SC ×2 (17:20→20:42)
[2019-02-03] MEDS: metFORMIN 500 MG TAB PO (17:20)
[2019-02-03 17:26] LABS: ADD UMIC NO; UR ASCORBIC ACID NEGATIVE (NEGATIVE); UR BILIRUBIN (Dip) NEGATIVE (NEGATIVE); UR BLOOD (Dip) NEGATIVE (NEGATIVE); UR CLARITY CLEAR (CLEAR); UR COLOR YELLOW (YELLOW); UR GLUCOSE (Dip) NEGATIVE (NEGATIVE); UR KETONES (Dip) NEGATIVE (NEGATIVE); UR LEUKOCYTE ESTERASE (Dip) NEGATIVE Leu/ul (NEGATIVE); UR NITRITE (Dip) NEGATIVE (NEGATIVE); UR SPECIFIC GRAVITY (Dip) 1.015 (1.003-1.030); UR TOTAL PROTEIN (Dip) NEGATIVE (NEGATIVE); UR UROBILINOGEN (Dip) NEGATIVE (NEGATIVE)
[2019-02-03] MEDS: ATORVASTATIN 40 MG TAB PO (20:38)
[2019-02-03] MEDS: FAMOTIDINE 20 MG TAB PO (20:38)
[2019-02-03] MEDS: GABAPENTIN 300 MG CAP PO (20:38)
[2019-02-03] MEDS: DOCUSATE SODIUM 100 MG CAP PO (20:39)
[2019-02-03] MEDS: INSULIN GLARGINE [LANTus] (100 UNITS/ML) SYG SC (20:41)
[2019-02-03] MEDS: BRIMONIDINE 0.15% 5 ML OPH BOTH EYES (20:41)
[2019-02-04] MEDS: ACCU-CHEK XX ×5 (02:00→20:57)
[2019-02-04] MEDS: oxyCODONE 15 MG TAB PO (02:21)
[2019-02-04 06:27] LABS: ADD MAN DIFF? NO
[2019-02-04 06:32] LABS: BASOPHILS % 0.3 % (0.0-2.0); EOSINOPHILS # 0.3 10^3/ul (0.0-0.5); HEMOGLOBIN 8.5 g/dl (14.0-18.0); LYMPHOCYTES # 1.2 10^3/ul (0.8-2.9); LYMPHOCYTES % 19.5 % (15.0-51.0); MEAN CORPUSCULAR HEMOGLOBIN 30.4 pg (29.0-33.0); MEAN CORPUSCULAR HGB CONC 32.7 g/dl (32.0-37.0); MEAN CORPUSCULAR VOLUME 92.9 fl (82.0-101.0); MEAN PLATELET VOLUME 9.8 fl (7.4-10.4); MONOCYTE # 0.9 10^3/ul (0.3-0.9); MONOCYTES % 14.4 % (0.0-11.0); NEUTROPHIL # 3.6 10^3/ul (1.6-7.5); NEUTROPHILS % 60.3 % (39.0-77.0); PLATELET COUNT 180 10^3/UL (140-415); RED CELL DISTRIBUTION WIDTH 12.8 % (11.5-14.5)
[2019-02-04 06:55] LABS: ALANINE AMINOTRANSFERASE 14 IU/L (13-69); ALBUMIN 3.2 g/dl (3.3-4.9); ALBUMIN/GLOBULIN RATIO 1.06; ALKALINE PHOSPHATASE 81 IU/L (42-121); ANION GAP 9 (5-13); ASPARTATE AMINO TRANSFERASE 26 IU/L (15-46); BILIRUBIN,INDIRECT 0.7 mg/dl (0-1.1); BILIRUBIN,TOTAL 0.7 mg/dl (0.2-1.3); BLOOD UREA NITROGEN 21 mg/dl (7-20); CALCIUM 8.3 mg/dl (8.4-10.2); CARBON DIOXIDE 27 mmol/L (21-31); CHLORIDE 105 mmol/L (97-110); CREATININE 1.67 mg/dl (0.61-1.24); GLUCOSE 106 mg/dl (70-220); POTASSIUM 4.2 mmol/L (3.5-5.1); SODIUM 141 mmol/L (135-144); TOTAL PROTEIN 6.2 g/dl (6.1-8.1)
[2019-02-04] MEDS: metFORMIN 500 MG TAB PO ×2 (07:35→17:35)
[2019-02-04] MEDS: INSULIN ASPART [NOVOLOG] 3 ML PEN SC ×4 (07:35→20:57)
[2019-02-04] MEDS: BRIMONIDINE 0.15% 5 ML OPH BOTH EYES ×2 (08:26→20:51)
[2019-02-04] MEDS: ASPIRIN (EC) 81 MG TAB PO (08:31)
[2019-02-04] MEDS: ENOXAPARIN 30 MG/0.3 ML SYG SC (08:54)
[2019-02-04] MEDS: ATENOLOL 100 MG TAB PO (08:59)
[2019-02-04] MEDS: FAMOTIDINE 20 MG TAB PO (20:51)
[2019-02-04] MEDS: ATORVASTATIN 40 MG TAB PO (20:51)
[2019-02-04] MEDS: GABAPENTIN 300 MG CAP PO (20:51)
[2019-02-04] MEDS: INSULIN GLARGINE [LANTus] (100 UNITS/ML) SYG SC (20:55)
[2019-02-05] MEDS: ACCU-CHEK XX ×5 (02:00→21:00)
[2019-02-05 06:19] LABS: ADD MAN DIFF? NO
[2019-02-05 06:25] LABS: WHITE BLOOD COUNT 5.8 10^3/ul (4.8-10.8)
[2019-02-05 06:25] LABS: BASOPHILS % 0.3 % (0.0-2.0); EOSINOPHILS # 0.2 10^3/ul (0.0-0.5); EOSINOPHILS % 3.5 % (0.0-7.0); HEMATOCRIT 26.1 % (42.0-52.0); HEMOGLOBIN 8.3 g/dl (14.0-18.0); LYMPHOCYTES # 1.2 10^3/ul (0.8-2.9); LYMPHOCYTES % 21.4 % (15.0-51.0); MEAN CORPUSCULAR HEMOGLOBIN 29.2 pg (29.0-33.0); MEAN CORPUSCULAR HGB CONC 31.8 g/dl (32.0-37.0); MEAN CORPUSCULAR VOLUME 91.9 fl (82.0-101.0); MEAN PLATELET VOLUME 9.9 fl (7.4-10.4); MONOCYTE # 0.8 10^3/ul (0.3-0.9); MONOCYTES % 13.9 % (0.0-11.0); NEUTROPHIL # 3.5 10^3/ul (1.6-7.5); NEUTROPHILS % 60.6 % (39.0-77.0); PLATELET COUNT 195 10^3/UL (140-415); RED BLOOD COUNT 2.84 10^6/ul (4.70-6.10); RED CELL DISTRIBUTION WIDTH 12.6 % (11.5-14.5)
[2019-02-05 06:50] LABS: ANION GAP 8 (5-13); BLOOD UREA NITROGEN 21 mg/dl (7-20); CALCIUM 8.4 mg/dl (8.4-10.2); CARBON DIOXIDE 27 mmol/L (21-31); CHLORIDE 103 mmol/L (97-110); CREATININE 1.54 mg/dl (0.61-1.24); GLUCOSE 96 mg/dl (70-220); MAGNESIUM 2.2 mg/dl (1.7-2.5); PHOSPHORUS 3.2 mg/dl (2.5-4.9); POTASSIUM 4.3 mmol/L (3.5-5.1); SODIUM 138 mmol/L (135-144)
[2019-02-05] MEDS: metFORMIN 500 MG TAB PO ×2 (07:35→17:35)
[2019-02-05] MEDS: INSULIN ASPART [NOVOLOG] 3 ML PEN SC ×4 (07:35→20:25)
[2019-02-05] MEDS: ASPIRIN (EC) 81 MG TAB PO (09:41)
[2019-02-05] MEDS: ENOXAPARIN 30 MG/0.3 ML SYG SC (09:44)
[2019-02-05] MEDS: ATENOLOL 100 MG TAB PO (09:45)
[2019-02-05] MEDS: BRIMONIDINE 0.15% 5 ML OPH BOTH EYES ×2 (09:55→20:23)
[2019-02-05] MEDS: FAMOTIDINE 20 MG TAB PO (20:23)
[2019-02-05] MEDS: ATORVASTATIN 40 MG TAB PO (20:23)
[2019-02-05] MEDS: GABAPENTIN 300 MG CAP PO (20:23)
[2019-02-05] MEDS: INSULIN GLARGINE [LANTus] (100 UNITS/ML) SYG SC (20:25)
[2019-02-06] MEDS: ACCU-CHEK XX ×5 (02:00→21:00)
[2019-02-06] MEDS: INSULIN ASPART [NOVOLOG] 3 ML PEN SC ×4 (07:35→21:00)
[2019-02-06] MEDS: metFORMIN 500 MG TAB PO ×2 (07:50→17:12)
[2019-02-06] MEDS: ATENOLOL 100 MG TAB PO (09:19)
[2019-02-06] MEDS: ASPIRIN (EC) 81 MG TAB PO (09:19)
[2019-02-06] MEDS: ENOXAPARIN 30 MG/0.3 ML SYG SC (09:20)
[2019-02-06] MEDS: BRIMONIDINE 0.15% 5 ML OPH BOTH EYES ×2 (09:20→20:36)
[2019-02-06] MEDS: oxyCODONE 15 MG TAB PO (09:34)
[2019-02-06] MEDS: INSULIN GLARGINE [LANTus] (100 UNITS/ML) SYG SC (20:35)
[2019-02-06] MEDS: [UNRECOGNIZED DRUG - OTHER] LEFT EYE (20:36)
[2019-02-06] MEDS: ATORVASTATIN 40 MG TAB PO (20:37)
[2019-02-06] MEDS: FAMOTIDINE 20 MG TAB PO (20:37)
[2019-02-06] MEDS: GABAPENTIN 300 MG CAP PO (20:37)
[2019-02-06] MEDS: [UNRECOGNIZED DRUG - OTHER] BOTH EYES (20:38)
[2019-02-07] MEDS: ACCU-CHEK XX ×5 (02:00→20:47)
[2019-02-07] MEDS: metFORMIN 500 MG TAB PO ×2 (07:35→07:51)
[2019-02-07] MEDS: INSULIN ASPART [NOVOLOG] 3 ML PEN SC ×4 (07:35→20:47)
[2019-02-07] MEDS: oxyCODONE 15 MG TAB PO (07:51)
[2019-02-07] MEDS: ATENOLOL 100 MG TAB PO (08:52)
[2019-02-07] MEDS: ASPIRIN (EC) 81 MG TAB PO (08:52)
[2019-02-07] MEDS: ENOXAPARIN 30 MG/0.3 ML SYG SC (08:53)
[2019-02-07] MEDS: [UNRECOGNIZED DRUG - OTHER] BOTH EYES ×2 (08:53→20:35)
[2019-02-07] MEDS: BRIMONIDINE 0.15% 5 ML OPH BOTH EYES ×2 (08:53→20:35)
[2019-02-07] MEDS: [UNRECOGNIZED DRUG - OTHER] LEFT EYE ×2 (08:53→20:35)
[2019-02-07] MEDS: ATORVASTATIN 40 MG TAB PO (20:37)
[2019-02-07] MEDS: GABAPENTIN 300 MG CAP PO (20:37)
[2019-02-07] MEDS: INSULIN GLARGINE [LANTus] (100 UNITS/ML) SYG SC (20:37)
[2019-02-07] MEDS: FAMOTIDINE 20 MG TAB PO (20:37)
[2019-02-08] MEDS: ACCU-CHEK XX ×5 (02:00→21:09)
[2019-02-08] MEDS: INSULIN ASPART [NOVOLOG] 3 ML PEN SC ×4 (07:35→21:00)
[2019-02-08] MEDS: ATENOLOL 100 MG TAB PO (08:55)
[2019-02-08] MEDS: ASPIRIN (EC) 81 MG TAB PO (08:55)
[2019-02-08] MEDS: [UNRECOGNIZED DRUG - OTHER] LEFT EYE ×2 (08:56→21:02)
[2019-02-08] MEDS: [UNRECOGNIZED DRUG - OTHER] BOTH EYES ×2 (08:56→21:02)
[2019-02-08] MEDS: oxyCODONE 15 MG TAB PO (08:56)
[2019-02-08] MEDS: BRIMONIDINE 0.15% 5 ML OPH BOTH EYES ×2 (08:57→21:04)
[2019-02-08] MEDS: ENOXAPARIN 30 MG/0.3 ML SYG SC (09:06)
[2019-02-08] MEDS: INSULIN GLARGINE [LANTus] (100 UNITS/ML) SYG SC (21:00)
[2019-02-08] MEDS: FAMOTIDINE 20 MG TAB PO (21:05)
[2019-02-08] MEDS: GABAPENTIN 300 MG CAP PO (21:05)
[2019-02-08] MEDS: ATORVASTATIN 40 MG TAB PO (21:05)
[2019-02-09] MEDS: ACCU-CHEK XX ×5 (02:00→20:40)
[2019-02-09] MEDS: INSULIN ASPART [NOVOLOG] 3 ML PEN SC ×4 (07:35→20:40)
[2019-02-09] MEDS: oxyCODONE 15 MG TAB PO (08:20)
[2019-02-09] MEDS: [UNRECOGNIZED DRUG - OTHER] LEFT EYE ×2 (09:08→20:39)
[2019-02-09] MEDS: BRIMONIDINE 0.15% 5 ML OPH BOTH EYES ×2 (09:09→20:37)
[2019-02-09] MEDS: [UNRECOGNIZED DRUG - OTHER] BOTH EYES ×2 (09:09→20:39)
[2019-02-09] MEDS: ASPIRIN (EC) 81 MG TAB PO (09:12)
[2019-02-09] MEDS: ATENOLOL 100 MG TAB PO (09:12)
[2019-02-09] MEDS: ENOXAPARIN 30 MG/0.3 ML SYG SC (09:16)
[2019-02-09] MEDS: LACTULOSE 30ML CUP PO (20:39)
[2019-02-09] MEDS: GABAPENTIN 300 MG CAP PO (20:39)
[2019-02-09] MEDS: ATORVASTATIN 40 MG TAB PO (20:40)
[2019-02-09] MEDS: FAMOTIDINE 20 MG TAB PO (20:40)
[2019-02-09] MEDS: INSULIN GLARGINE [LANTus] (100 UNITS/ML) SYG SC (20:50)
[2019-02-10] MEDS: ACCU-CHEK XX ×5 (02:00→21:00)
[2019-02-10] MEDS: oxyCODONE 5 MG TAB PO ×2 (04:27→19:48)
[2019-02-10] MEDS: INSULIN ASPART [NOVOLOG] 3 ML PEN SC ×4 (07:35→21:00)
[2019-02-10 07:53] LABS: ANION GAP 7 (5-13); BLOOD UREA NITROGEN 29 mg/dl (7-20); CALCIUM 8.6 mg/dl (8.4-10.2); CARBON DIOXIDE 26 mmol/L (21-31); CHLORIDE 105 mmol/L (97-110); CREATININE 1.66 mg/dl (0.61-1.24); GLUCOSE 110 mg/dl (70-220); MAGNESIUM 2.1 mg/dl (1.7-2.5); PHOSPHORUS 4.1 mg/dl (2.5-4.9); POTASSIUM 4.8 mmol/L (3.5-5.1); SODIUM 138 mmol/L (135-144)
[2019-02-10] MEDS: ASPIRIN (EC) 81 MG TAB PO (09:56)
[2019-02-10] MEDS: ENOXAPARIN 30 MG/0.3 ML SYG SC (09:58)
[2019-02-10] MEDS: [UNRECOGNIZED DRUG - OTHER] LEFT EYE ×2 (09:58→21:05)
[2019-02-10] MEDS: [UNRECOGNIZED DRUG - OTHER] BOTH EYES ×2 (09:59→21:05)
[2019-02-10] MEDS: BRIMONIDINE 0.15% 5 ML OPH BOTH EYES ×2 (09:59→21:05)
[2019-02-10] MEDS: ATENOLOL 100 MG TAB PO (10:02)
[2019-02-10] MEDS: FAMOTIDINE 20 MG TAB PO (21:04)
[2019-02-10] MEDS: GABAPENTIN 300 MG CAP PO (21:04)
[2019-02-10] MEDS: ATORVASTATIN 40 MG TAB PO (21:04)
[2019-02-10] MEDS: INSULIN GLARGINE [LANTus] (100 UNITS/ML) SYG SC (21:25)
[2019-02-10] MEDS ORDERED: DIPHENHYDRAMINE 25 MG CAP PO (22:30)
[2019-02-11] MEDS: ACCU-CHEK XX ×5 (02:00→21:47)
[2019-02-11] MEDS: oxyCODONE 5 MG TAB PO ×2 (03:58→19:40)
[2019-02-11] MEDS: INSULIN ASPART [NOVOLOG] 3 ML PEN SC ×4 (07:35→21:00)
[2019-02-11] MEDS: ASCORBIC ACID 250 MG TAB PO (10:00)
[2019-02-11] MEDS: ASPIRIN (EC) 81 MG TAB PO (10:00)
[2019-02-11] MEDS: ZINC SULFATE 220 MG CAP PO (10:00)
[2019-02-11] MEDS: MULTIVITAMINS THERAPEUTIC TAB PO (10:00)
[2019-02-11] MEDS: [UNRECOGNIZED DRUG - OTHER] LEFT EYE ×2 (10:01→20:40)
[2019-02-11] MEDS: ATENOLOL 100 MG TAB PO (10:01)
[2019-02-11] MEDS: [UNRECOGNIZED DRUG - OTHER] BOTH EYES ×2 (10:01→20:41)
[2019-02-11] MEDS: BRIMONIDINE 0.15% 5 ML OPH BOTH EYES ×2 (10:02→20:42)
[2019-02-11] MEDS: ENOXAPARIN 30 MG/0.3 ML SYG SC (10:49)
[2019-02-11] MEDS: GABAPENTIN 300 MG CAP PO (20:39)
[2019-02-11] MEDS: ATORVASTATIN 40 MG TAB PO (20:39)
[2019-02-11] MEDS: FAMOTIDINE 20 MG TAB PO (20:40)
[2019-02-11] MEDS: INSULIN GLARGINE [LANTus] (100 UNITS/ML) SYG SC (20:44)
[2019-02-12] MEDS: ACCU-CHEK XX ×2 (02:00→07:45)
[2019-02-12] MEDS: INSULIN ASPART [NOVOLOG] 3 ML PEN SC (07:45)
[2019-02-12] MEDS: ASCORBIC ACID 250 MG TAB PO (08:51)
[2019-02-12] MEDS: oxyCODONE 5 MG TAB PO (08:51)
[2019-02-12] MEDS: ZINC SULFATE 220 MG CAP PO (08:51)
[2019-02-12] MEDS: ATENOLOL 100 MG TAB PO (08:52)
[2019-02-12] MEDS: MULTIVITAMINS THERAPEUTIC TAB PO (08:52)
[2019-02-12] MEDS: [UNRECOGNIZED DRUG - OTHER] BOTH EYES (08:52)
[2019-02-12] MEDS: ASPIRIN (EC) 81 MG TAB PO (08:52)
[2019-02-12] MEDS: [UNRECOGNIZED DRUG - OTHER] LEFT EYE (08:53)
[2019-02-12] MEDS: BRIMONIDINE 0.15% 5 ML OPH BOTH EYES (08:54)
[2019-02-12] MEDS: ENOXAPARIN 30 MG/0.3 ML SYG SC (09:01)
== END 2019-02-12 16:35 | DRG 560 ==
LOC: VRC 13:55
PROC: F07Z5ZZ Bed Mobility Treatment (ICD-10-PCS; principal; 2019-02-03)
PROC: F08Z2ZZ Grooming/Personal Hygiene Treatment (ICD-10-PCS; 2019-02-03)
DX: S82.401D Unspecified fracture of shaft of right fibula, subsequent encounter for closed fracture with routine healing (principal); N17.9 Acute kidney failure, unspecified; S82.201D Unspecified fracture of shaft of right tibia, subsequent encounter for closed fracture with routine healing; W19.XXXD Unspecified fall, subsequent encounter; D64.9 Anemia, unspecified; E83.9 Disorder of mineral metabolism, unspecified; E11.22 Type 2 diabetes mellitus with diabetic chronic kidney disease; I12.9 Hypertensive chronic kidney disease with stage 1 through stage 4 chronic kidney disease, or unspecified chronic kidney disease; N18.3 Chronic kidney disease, stage 3 (moderate); Z96.41 Presence of insulin pump (external) (internal); I25.10 Atherosclerotic heart disease of native coronary artery without angina pectoris; S01.01XD Laceration without foreign body of scalp, subsequent encounter; E78.5 Hyperlipidemia, unspecified; Z98.890 Other specified postprocedural states; M19.012 Primary osteoarthritis, left shoulder; Z79.4 Long term (current) use of insulin; F06.31 Mood disorder due to known physiological condition with depressive features
CPT/HCPCS: 73590; 73610-RT; 80048; 80053; 81003; 82962; 83735; 84100; 85025; 87081; 87086; 97110; 97112; 97116; 97163; 97167; 97530; 97535; 97542